=== PATIENT | male | born 1995 | race Caucasian/White ===

== ENCOUNTER 2018-10-02 00:15 | Day surgery (SDC) | payer OTHER ==
[~2018-10-02 00:15] MED LIST: ALBU90I INH; CYCL10 PO; LAMO100 PO; MONT10T PO; PROM25 PO
== END 2018-10-02 22:46 | disposition home or self-care (01) ==
LOC: WOUND 00:15
DX: T81.31XD Disruption of external operation (surgical) wound, not elsewhere classified, subsequent encounter (principal); Z93.1 Gastrostomy status
CPT/HCPCS: G0463

== ENCOUNTER 2020-12-14 17:19 | Emergency (ER) | payer OTHER ==
[~2020-12-14] VITALS: Ht 175.3 cm; Wt 83.9 kg
== END 2020-12-14 20:24 | disposition home or self-care (01) ==
LOC: ER 17:19
DX: G43.909 Migraine, unspecified, not intractable, without status migrainosus (principal); J45.909 Unspecified asthma, uncomplicated; Z79.899 Other long term (current) drug therapy
CPT/HCPCS: 70450; 96374; 96375; 99284-25; J0780; J1200; J1885

== ENCOUNTER → 2021-03-22 | Outpatient (CLI) | payer OTHER ==
[2021-03-24 10:11] LABS: CHLAMYDIA BY NAA Negative (Negative); GONOCOCCUS BY NAA Positive (Negative); TRICH VAG BY NAA Negative (Negative)
== END | disposition home or self-care (01) ==
LOC: LAB SHORT 17:24
PROVIDERS: Chiropractor
DX: N34.2 Other urethritis (principal)
CPT/HCPCS: 87491; 87591; 87661